=== PATIENT | female | born 1965 | race Caucasian/White ===

== ENCOUNTER → 2020-05-13 | Outpatient (REF) | payer BC ==
[2020-05-13 13:11] LABS: BASO % 0.7 % (0.0-1.0); EOS # 0.1 10^3/uL (0.0-0.5); HEMATOCRIT 40.7 % (36.0-47.0); HEMOGLOBIN 13.1 g/dl (12.0-15.5); LYMPH # 1.6 10^3/uL (1.5-5.0); LYMPH % 40.2 % (24.0-44.0); MEAN CORPUSCULAR HEMOGLOBIN 31.8 pg (27.0-33.0); MEAN CORPUSCULAR HGB CONC 32.2 g/dl (32.0-36.5); MEAN CORPUSCULAR VOLUME 98.8 fl (80.0-96.0); MONO # 0.3 10^3/uL (0.0-0.8); MONO % 7.4 % (0.0-5.0); NEUTROPHILS % 49.7 % (36.0-66.0); PLATELET COUNT, AUTOMATED 211 10^3/uL (150-450); RED BLOOD COUNT 4.12 10^6/uL (4.00-5.40)
[2020-05-13 13:50] LABS: ALT/SGPT 36 U/L (12-78); BILIRUBIN,TOTAL 0.5 MG/DL (0.2-1.0); BLOOD UREA NITROGEN 16 MG/DL (7-18); CALCIUM LEVEL 9.5 MG/DL (8.5-10.1); CARBON DIOXIDE LEVEL 30 MEQ/L (21-32); CHLORIDE LEVEL 106 MEQ/L (98-107); CHOLESTEROL LEVEL 217 MG/DL (<200); CHOLESTEROL RISK RATIO 2.746 (<5); CREATININE FOR GFR 0.83 MG/DL (0.55-1.30); FREE T4 1.06 NG/DL (0.76-1.46); GLOMERULAR FILTRATION RATE > 60.0 (>51); GLUCOSE, FASTING 90 MG/DL (70-100); HDL CHOLESTEROL 79 MG/DL (>40); LDL CHOLESTEROL 121 MG/DL (<100); NON-HDL-C 138 MG/DL; POTASSIUM SERUM 4.4 MEQ/L (3.5-5.1); SODIUM LEVEL 140 MEQ/L (136-145); TOTAL PROTEIN 7.4 GM/DL (6.4-8.2); TRIGLYCERIDES LEVEL 85 MG/DL (<150); URIC ACID 4.2 MG/DL (2.6-6.0)
== END ==
LOC: M SFHCCLAY 08:34
PROVIDERS: ATTEND Nurse Practitioner Family
DX: K58.0 Irritable bowel syndrome with diarrhea (principal); L30.9 Dermatitis, unspecified; Z13.220 Encounter for screening for lipoid disorders

== ENCOUNTER → 2020-05-13 | Outpatient (REF) | payer BC ==
[2020-05-13 13:12] LABS: BASO % 0.5 % (0.0-1.0); EOS # 0.1 10^3/uL (0.0-0.5); EOS % 1.5 % (0.0-3.0); HEMATOCRIT 40.8 % (36.0-47.0); HEMOGLOBIN 13.2 g/dl (12.0-15.5); LYMPH # 1.6 10^3/uL (1.5-5.0); LYMPH % 39.8 % (24.0-44.0); MEAN CORPUSCULAR HEMOGLOBIN 32.3 pg (27.0-33.0); MEAN CORPUSCULAR HGB CONC 32.4 g/dl (32.0-36.5); MEAN CORPUSCULAR VOLUME 99.8 fl (80.0-96.0); MONO # 0.3 10^3/uL (0.0-0.8); MONO % 7.6 % (0.0-5.0); NEUTROPHILS % 50.3 % (36.0-66.0); PLATELET COUNT, AUTOMATED 203 10^3/uL (150-450); RED BLOOD COUNT 4.09 10^6/uL (4.00-5.40); WHITE BLOOD COUNT 3.9 10^3/uL (4.0-10.0)
[2020-05-13 13:50] LABS: ESTRADIOL 23.4 PG/ML; FOLLICLE STIMULATING HORMONE 113.8 mIU/mL; FREE T3 3.4 PG/ML (2.2-4.0); FREE T4 1.08 NG/DL (0.76-1.46); LUTEINIZING HORMONE 56.6 mIU/mL; PROGESTERONE 0.21 NG/ML; THYROID STIMULATING HORMONE 4.7 uIU/ML (0.358-3.740)
[2020-05-14 17:09] LABS: TESTOSTERONE FREE (DIRECT) 1.3 pg/mL (0.0-4.2)
== END ==
LOC: M LABDRAWC 11:13
PROVIDERS: ATTEND Family Medicine
DX: Z13.29 Encounter for screening for other suspected endocrine disorder (principal); Z00.00 Encounter for general adult medical examination without abnormal findings; R53.83 Other fatigue; R68.82 Decreased libido

== ENCOUNTER → 2020-11-17 | Outpatient (REF) | payer BC | LOC: M SFHCCLAY 10:02 | PROVIDERS: ATTEND Nurse Practitioner Family | DX: Z12.4 Encounter for screening for malignant neoplasm of cervix (principal); Z77.9 Other contact with and (suspected) exposures hazardous to health ==

== ENCOUNTER → 2020-11-26 | Outpatient (CLI) | payer BC | LOC: M WHC 09:34 | PROVIDERS: ATTEND Nurse Practitioner Family | DX: Z12.31 Encounter for screening mammogram for malignant neoplasm of breast (principal) ==

== ENCOUNTER → 2021-01-01 | Outpatient (CLI) | payer BC ==
--- NOTE | 2021-01-01 12:51 | REP ---
INDICATION: ADDL VIEWS/LEFT BREAST RENE DENSITY. Screening mammography [id number] was BI-RADS category 0 incomplete because of a possible tiny rene density in the superomedial aspect of the left breast. Diagnostic imaging was recommended. COMPARISON: In addition to November 26, 2020 mammography, prior studies from November 07, 2019 and October 05, 2018 are reviewed. TECHNIQUE: Magnified focal spot-compression CC, MLO, and mL views of the left breast are obtained in the area of interest. A true mL view is obtained. 3D tomography was a deployed in the mL projection and a soren spot MLO view was acquired. Targeted left breast sonography is performed. This mammogram was interpreted with the aid of an FDA-approved computer-aided detection system. FINDINGS: Diagnostic mammographic images demonstrate that the area in question compresses away to stromal elements which are felt to be unchanged from prior mammography. Breast parenchyma is again seen to be heterogeneously dense in a pattern which may inhibit the sensitivity mammography. No suspicious mammographic abnormality was observed. The Volpara volumetric breast density pattern is C. Targeted ultrasound: Targeted left breast sonography is performed through the superomedial quadrant, 9:00 to 12:00. Heterogeneous fibroglandular background echotexture is seen. No soft tissue mass, cyst, or suspicious acoustic shadowing is observed. IMPRESSION: BIRADS/ACR category 1 negative breast mammographic and sonographic findings. This patient's Tyrer-Cuzick lifetime breast cancer risk assessment score is 8.7 %. RECOMMENDATION: Repeat screening mammography recommended 1 year (for women over 40). The patient letter being requested is M1 dense. <Electronically signed by Greg Queen > 01/01/21 [id number]
== END ==
LOC: M WHC 11:04
PROVIDERS: ATTEND Nurse Practitioner Family
DX: R92.8 Other abnormal and inconclusive findings on diagnostic imaging of breast (principal)
CPT/HCPCS: 76642; 77065; G0279

== ENCOUNTER → 2021-02-13 | Outpatient (CLI) | payer BC ==
[~2021-02-13] MED LIST: PROG1CAP8 PO; SPIR50TA4 PO; VYVA1CAP PO; [UNRECOGNIZED DRUG - REMARK]
== END ==
LOC: M LABSMTC 09:04
PROVIDERS: ATTEND Anesthesiology
DX: Z01.812 Encounter for preprocedural laboratory examination (principal)

== ENCOUNTER 2021-02-18 09:55 | Day surgery (SDC) | payer BC ==
[~2021-02-18] VITALS: Ht 167.6 cm; Wt 66.7 kg
[~2021-02-18 09:55] MED LIST changes: +NS 1,000 ML IV ONE
[2021-02-18] MEDS ORDERED: LIDOCAINE 2% 100MG/5ML SDV (FOR ANES.) As Ordered ONE (10:47)
[2021-02-18] MEDS ORDERED: propofoL 200 MG/20 ML VIAL As Ordered ONE ×3 (10:47→11:11)
--- NOTE | 2021-02-18 11:20 | ROOR ---
Patient Name: Renae Vora Procedure Date: 02/18/2021 10:52 AM Date of : 1965 Age: 55 Room: [facility] Gender: Female Note Status: Finalized Procedure: Colonoscopy Indications: Screening for colorectal malignant neoplasm, Screening in patient at increased risk: Family history of 1st-degree relative with colorectal cancer Providers: Benjamin Gutierrez Jr, MD Referring MD: Cristine Del Angel NP Requesting Provider: Medicines: Propofol per Anesthesia Complications: No immediate complications. Procedure: Pre-Anesthesia Assessment: - Prior to the procedure, a History and Physical was performed, and patient medications and allergies were reviewed. The patient is competent. The risks and benefits of the procedure and the sedation options and risks were discussed with the patient. All questions were answered and informed consent was obtained. Patient identification and proposed procedure were verified by the physician and the nurse in the pre-procedure area and in the procedure room. Mental Status Examination: alert and oriented. Airway Examination: normal oropharyngeal airway and neck mobility. Respiratory Examination: clear to auscultation. CV Examination: normal. ASA Grade Assessment: II - A patient with mild systemic disease. After reviewing the risks and benefits, the patient was deemed in satisfactory condition to undergo the procedure. The anesthesia plan was to use moderate sedation / analgesia (conscious sedation). Immediately prior to administration of medications, the patient was re-assessed for adequacy to receive sedatives. The heart rate, respiratory rate, oxygen saturations, blood pressure, adequacy of pulmonary ventilation, and response to care were monitored throughout the procedure. The physical status of the patient was re-assessed after the procedure. The Colonoscope was introduced through the anus and advanced to the cecum, identified by appendiceal orifice and ileocecal valve. The colonoscopy was performed without difficulty. The patient tolerated the procedure well. The quality of the bowel preparation was adequate. Findings: The rectum, recto-sigmoid colon, sigmoid colon, descending colon, transverse colon, ascending colon, cecum, appendiceal orifice and ileocecal valve appeared normal. Impression: - The rectum, recto-sigmoid colon, sigmoid colon, descending colon, transverse colon, ascending colon, cecum, appendiceal orifice and ileocecal valve are normal. - No specimens collected. Recommendation: - Discharge patient to home (ambulatory). - Repeat colonoscopy in 5 years for screening purposes. Procedure Code(s): --- Professional --- 82684, Colonoscopy, flexible; diagnostic, including collection of specimen(s) by brushing or washing, when performed (separate procedure) Diagnosis Code(s): --- Professional --- Z12.11, Encounter for screening for malignant neoplasm of colon Z80.0, Family history of malignant neoplasm of digestive organs CPT copyright 2019 [employer]. All rights reserved. The codes documented in this report are preliminary and upon talent management specialist review may be revised to meet current compliance requirements. Benjamin Gutierrez MD Benjamin Gutierrez Jr, MD 02/18/2021 11:19:50 AM Electronically signed by Benjamin Gutierrez Jr, MD Number of Addenda: 0 Note Initiated On: 02/18/2021 10:52 AM Estimated Blood Loss: Estimated blood loss: none.
[2021-02-18 11:40] VITALS: BP 100/57
== END 2021-02-18 11:54 | disposition home or self-care (01) ==
LOC: M OPP 09:55
PROVIDERS: ATTEND Surgery
DX: Z12.11 Encounter for screening for malignant neoplasm of colon (principal); Z80.0 Family history of malignant neoplasm of digestive organs; Z79.899 Other long term (current) drug therapy; Z79.890 Hormone replacement therapy; Z88.2 Allergy status to sulfonamides; Z88.5 Allergy status to narcotic agent; Z91.011 Allergy to milk products; Z91.013 Allergy to seafood; Z91.018 Allergy to other foods

== ENCOUNTER → 2021-05-18 | Outpatient (REF) | payer BC ==
[~2021-05-18] MED LIST changes: -NS 1,000 ML IV ONE
[2021-05-18 17:29] LABS: GC DNA AMPLIFICATION NEGATIVE (NEGATIVE)
== END ==
LOC: M SFHCCLAY 09:31
PROVIDERS: ATTEND Nurse Practitioner Family
DX: N76.0 Acute vaginitis (principal)

== ENCOUNTER → 2022-01-14 | Outpatient (CLI) | payer BC | LOC: M WHC 07:37 | PROVIDERS: ATTEND Nurse Practitioner Family | DX: Z12.31 Encounter for screening mammogram for malignant neoplasm of breast (principal); Z78.0 Asymptomatic menopausal state ==

== ENCOUNTER → 2023-01-18 | Outpatient (CLI) | payer BC | LOC: M WHC 08:29 | PROVIDERS: ATTEND Nurse Practitioner Family | DX: Z12.31 Encounter for screening mammogram for malignant neoplasm of breast (principal) ==

== ENCOUNTER → 2023-07-07 | Outpatient (REF) | payer BC | LOC: M SFHCCLAY 17:11 | PROVIDERS: ATTEND Nurse Practitioner Family | DX: K58.0 Irritable bowel syndrome with diarrhea (principal) ==

== ENCOUNTER → 2023-12-05 | Outpatient (CLI) | payer BC | LOC: M CLY 11:23 | PROVIDERS: ATTEND Nurse Practitioner Family | DX: S92.354D Nondisplaced fracture of fifth metatarsal bone, right foot, subsequent encounter for fracture with routine healing (principal) ==

== ENCOUNTER → 2024-01-23 | Outpatient (CLI) | payer BC | LOC: M WHC 09:01 | PROVIDERS: ATTEND Nurse Practitioner Family | DX: Z12.31 Encounter for screening mammogram for malignant neoplasm of breast (principal) ==

== ENCOUNTER → 2024-02-07 | Outpatient (REF) | payer BC | LOC: M SFHCPLAZ 17:12 | PROVIDERS: ATTEND Student in an Organized Health Care Education/Training Program | DX: J02.9 Acute pharyngitis, unspecified (principal) ==

== ENCOUNTER → 2024-07-18 | Outpatient (REF) | payer BC | LOC: M SFHCCLAY 09:08 | PROVIDERS: ATTEND Nurse Practitioner Family | DX: Z53.9 Procedure and treatment not carried out, unspecified reason (principal) ==

== ENCOUNTER → 2024-07-24 | Outpatient (REF) | payer BC ==
[2024-07-24 17:39] LABS: BASO % 0.3 % (0.0-1.0); EOS # 0.1 10^3/uL (0.0-0.5); EOS % 0.8 % (0.0-3.0); HEMATOCRIT 39.6 % (36.0-47.0); HEMOGLOBIN 13.6 g/dl (12.0-15.5); LYMPH % 32.5 % (24.0-44.0); MEAN CORPUSCULAR HEMOGLOBIN 33.7 pg (27.0-33.0); MEAN CORPUSCULAR HGB CONC 34.3 g/dl (32.0-36.5); MONO # 0.4 10^3/uL (0.0-0.8); NEUTROPHILS # 3.6 10^3/uL (1.5-8.5); NEUTROPHILS % 59.1 % (36.0-66.0); PLATELET COUNT, AUTOMATED 223 10^3/uL (150-450); RED BLOOD COUNT 4.04 10^6/uL (4.00-5.40); WHITE BLOOD COUNT 6.1 10^3/uL (4.0-10.0)
[2024-07-24 17:43] LABS: FREE T4 1.03 NG/DL (0.89-1.76)
[2024-07-24 17:44] LABS: THYROID STIMULATING HORMONE 3.382 uIU/ML (0.55-4.78)
[2024-07-24 17:45] LABS: TOTAL 25(OH) VITAMIN D 77.2 NG/ML (20.0-100.0)
[2024-07-24 17:47] LABS: ALBUMIN 3.8 G/DL (3.2-5.2); ALKALINE PHOSPHATASE 68 U/L (35-104); ALT/SGPT 15 U/L (7.0-40); AST/SGOT 12 U/L (<34); BILIRUBIN,TOTAL 0.3 MG/DL (0.3-1.2); BLOOD UREA NITROGEN 21 MG/DL (9-23); CALCIUM LEVEL 9.7 MG/DL (8.5-10.1); CARBON DIOXIDE LEVEL 26 MMOL/L (20-31); CHLORIDE LEVEL 104 MMOL/L (98-107); CHOLESTEROL LEVEL 230 MG/DL (<200); CHOLESTEROL RISK RATIO 3.52 (<5); CREATININE FOR GFR 0.71 MG/DL (0.55-1.30); GLOMERULAR FILTRATION RATE > 60.0 (>51); GLUCOSE, FASTING 99 MG/DL (60-100); HDL CHOLESTEROL 65.3 MG/DL (>40); LDL CHOLESTEROL 109.7 MG/DL (<100); NON-HDL-C 164.7 MG/DL; POTASSIUM SERUM 4.5 MMOL/L (3.5-5.1); SODIUM LEVEL 140 MMOL/L (136-145); TOTAL PROTEIN 7.2 G/DL (5.7-8.2); TRIGLYCERIDES LEVEL 275 MG/DL (<150)
== END ==
LOC: M SFHCCLAY 10:41
PROVIDERS: ATTEND Nurse Practitioner Family
DX: Z13.220 Encounter for screening for lipoid disorders (principal); K58.0 Irritable bowel syndrome with diarrhea; L30.9 Dermatitis, unspecified

== ENCOUNTER → 2024-11-22 | Outpatient (CLI) | payer BC | LOC: M WHC 09:07 | PROVIDERS: ATTEND Nurse Practitioner Family | DX: N95.1 Menopausal and female climacteric states (principal); M85.851 Other specified disorders of bone density and structure, right thigh; M85.852 Other specified disorders of bone density and structure, left thigh ==

== ENCOUNTER → 2025-03-11 | Outpatient (CLI) | payer BC | LOC: M WHC 09:44 | PROVIDERS: ATTEND Nurse Practitioner | DX: Z12.31 Encounter for screening mammogram for malignant neoplasm of breast (principal); R92.333 Mammographic heterogeneous density, bilateral breasts ==